=== PATIENT | male | born 1985 | race Caucasian/White ===

== ENCOUNTER 2019-06-25 17:52 | Emergency (ER) | payer OTHER, SELFPAY ==
--- NOTE | ~2019-06-25 | XR_ITS ---
EXAMINATION: XR chest 2V EXAM DATE: 06/25/2019 18:40 INDICATION: Cough and wheezing. TECHNIQUE: Frontal and lateral projections of the chest obtained and reviewed. Comparison is made to prior examination from 01/22/2007. FINDINGS: The lungs are clear. There are no pleural effusions. The cardiomediastinal silhouette is within normal limits. There is no pneumothorax suspected. The bones and soft tissues are unremarkab le. IMPRESSION: No acute cardiopulmonary findings. Reviewed, dictated and finalized at location A.
[2019-06-25 17:58] VITALS: BP 128/88; PULSE 113; RESP 24; TEMP 37.4; O2SAT 95
--- NOTE | 2019-06-25 18:05 | ED.GENADULT ---
HPI - General Adult General Chief complaint: Upper Respiratory Infection Stated complaint: cough/chest congestion Source: patient and RN notes reviewed Mode of arrival: ambulatory Limitations: no limitations History of Present Illness HPI narrative: This is a 34 years old male presents to the office for an evaluation of of cough for four days. Associated with wheezing, feeling malaise, sinus drainage, nausea with loose stools. Denies fever, feeling achy, shortness of breath.Denies sick contact at home. He is an EMT. Denies history of smoking. He tried otc decongestion for his symptoms. Related Data Home Medications Medication Instructions Recorded Confirmed amlodipine 10 mg PO DAILY 06/25/19 06/25/19 duloxetine 60 mg PO DAILY 06/25/19 06/25/19 Allergies Allergy/AdvReac Type Severity Reaction Status Date / Time No Known Allergies Allergy Verified 06/25/19 18:26 Review of Systems Review of Systems: Narrative: CONSTITUTIONAL: Denies fever. Reports feeling hot flush ENT: Denies sore throat, otalgia. CARDIOVASCULAR: Denies chest pain RESPIRATORY: Denies dyspnea. Reports wheezing, cough GASTROINTESTINAL: Denies abdominal pain, vomiting SKIN: Denies rash MUSCULOSKELETAL: Denies acute back pain NEUROLOGIC: Denies lightheaded PMFSH Past Medical History Medical History (Updated 06/25/19 @ 19:31 by ELOISA Mckeon) Anxiety and depression HTN (hypertension) Social History Social History (Updated 06/25/19 @ 19:31 by ELOISA Mckeon) Smoking status: Never smoker Comments At time of signature, I agree with nursing past medical, surgical, social and family history. There is no relevant family history pertinent to the presenting complaint. Exam Narrative: Exam Narrative: GENERAL: This is a well-nourished, well-developed patient, in no apparent distress. EYES: PERRL. Sclera clear/white. Vision is grossly intact. EARS: External ears normal, auditory canals clear and without drainage, TMs normal without perforation. Hearing grossly intact. NOSE: External nose normal with no obvious nasal discharge, nares without redness, no rhinorrhea. THROAT: Mucous membranes moist, posterior pharynx clear. NECK: Neck supple, non-tender without lymphadenopathy, masses or thyromegaly. CARDIOVASCULAR: Regular rate and rhythm without murmurs, gallops, or rubs. RESPIRATORY: clear to auscultation except right lower lobe noted expiratory wheezing. Breath sounds equal bilaterally. No rales, or rhonchi. GASTROINTESTINAL: Abdomen soft, non-tender, nondistended. Bowel sounds are active. No hepato-splenomegaly, or palpable masses. No guarding. NEURO: awake, alert, and oriented to person, place and time. There were no obvious focal neurologic abnormalities. Steady gait Raymond Coma Scale Eye Opening: Spontaneous 4 Rachna Coma Scale Motor: Obeys Commands 6 Raymond Coma Scale Verbal: Oriented 5 Course Vital Signs Vital signs: Vital Signs Temperature 99.3 F 06/25/19 17:58 Pulse Rate 113 H 06/25/19 17:58 Respiratory Rate 24 H 06/25/19 17:58 Blood Pressure 128/88 06/25/19 17:58 Pulse Oximetry 95 06/25/19 17:58 Temperature 99.3 F 06/25/19 17:58 Pulse Rate 113 H 06/25/19 17:58 Respiratory Rate 24 H 06/25/19 17:58 Blood Pressure 128/88 06/25/19 17:58 Pulse Oximetry 95 06/25/19 17:58 Medical Decision Making MDM Narrative Medical decision making narrative: Covid testing is ordered. Discharge instructions reviewed with patient, as well as provided in writing per nursing staff. The instructions also include specific and strict return/GO TO THE ER as well as f/u information. All questions have been answered, and the patient deny any further questions with discharge and discharge plan. Differential Diagnosis Differential Diagnosis: pneumonia, Allergic Rhinitis, Upper respiratory cough syndrome, Pharyngitis, Sinusitis, Bronchitis, otitis media, viral URI, Asthma/reactive airway disease, infl
--- NOTE | 2019-06-25 18:59 | PC.NURSE ---
06/25/2019 7747 FACE SHEET AND ORDER FOR COVID 19 TESTING FAXED OVER TO [facility] AT [facility]. Mark WILBURN RN.
== END 2019-06-25 19:20 | disposition home or self-care (01) ==
PROVIDERS: Emergency Provider Nurse Practitioner
DX: J06.9 Acute upper respiratory infection, unspecified (principal); R05 Cough; Z20.828 Contact with and (suspected) exposure to other viral communicable diseases; F41.9 Anxiety disorder, unspecified; F32.9 Major depressive disorder, single episode, unspecified; I10 Essential (primary) hypertension
CPT/HCPCS: 71046; 99213; G0463